=== PATIENT | female | born 1940 | race Caucasian/White ===

== ENCOUNTER 2020-02-24 09:36 | Outpatient (REF) | payer MEDICARE, BC, SELFPAY ==
[2020-02-24 10:21] LABS: Hematocrit 44.9 % (37-47); Hemoglobin 13.9 g/dl (12.0-16.0); Mean Corpuscular Hemoglobin 29.1 pg (27.0-33.0); Mean Corpuscular Volume 94.1 fL (80-98); Mean Platelet Volume 9.5 fL (9.4-12.3); Platelet Count 332 X10*3/uL (160-400); Red Blood Count 4.77 X10*6/uL (4.20-5.50); Red Cell Distribution Width 14.1 % (11.0-16.0); White Blood Count 8.5 X10*3/uL (4.8-10.8)
[2020-02-24 11:05] LABS: Ferritin 167 ng/mL (10-250)
[2020-02-24 18:52] LABS: Folate 8.6 ng/mL (> or = 4.0); Vitamin B12 248 pg/mL (200-900)
== END 2020-02-24 09:37 | disposition home or self-care (01) ==
LOC: HO.LAB 09:36
PROVIDERS: PCP Internal Medicine; Visit Provider Internal Medicine Gastroenterology
DX: Z86.2 Personal history of diseases of the blood and blood-forming organs and certain disorders involving the immune mechanism (principal)
CPT/HCPCS: 36415; 82607; 82728; 82746; 85027

== ENCOUNTER → 2020-05-21 13:08 | Outpatient (BNVA) | payer MEDICARE, BC, SELFPAY | PROVIDERS: PCP Internal Medicine; Visit Provider Internal Medicine Gastroenterology | DX: Z13.89 Encounter for screening for other disorder (principal) | CPT/HCPCS: Q3014 ==

== ENCOUNTER 2020-07-08 09:43 | Outpatient (REF) | payer MEDICARE, BC, SELFPAY ==
[2020-07-08 11:25] LABS: MANUAL DIFF FLAG NO
[2020-07-08 11:32] LABS: Basophils Absolute Auto 0.1 X10*3/uL (0.0-0.2); Basophils Percent Auto 0.8 % (0-2); Eosinophils Absolute Auto 0.2 X10*3/uL (0.0-0.4); Eosinophils Percent Auto 2.3 % (0-4); Hematocrit 45.6 % (37-47); Hemoglobin 14.7 g/dl (12.0-16.0); Imm Gran Abs Auto 0.02 X10*3/uL (0.00-0.03); Imm Gran Pct Auto 0.3 % (0.0-0.4); Lymphocytes Absolute Auto 2.1 X10*3/uL (1.2-4.9); Lymphocytes Percent Auto 27.2 % (20-40); Mean Corpuscular HGB Conc 32.2 g/dl (31.0-35.0); Mean Corpuscular Hemoglobin 29.5 pg (27.0-33.0); Mean Corpuscular Volume 91.6 fL (80-98); Mean Platelet Volume 9.6 fL (9.4-12.3); Monocytes Absolute Auto 0.5 X10*3/uL (0.1-1.2); Monocytes Percent Auto 6.2 % (2-11); Neutrophils Absolute Auto 4.9 X10*3/uL (2.0-8.3); Neutrophils Percent Auto 63.2 % (45-73); Platelet Count 318 X10*3/uL (160-400); Red Blood Count 4.98 X10*6/uL (4.20-5.50); Red Cell Distribution Width 14.2 % (11.0-16.0); White Blood Count 7.8 X10*3/uL (4.8-10.8)
[2020-07-08 11:48] LABS: Alanine Aminotransferase 14 U/L (0-31); Albumin Level 4.2 g/dL (3.5-5.0); Alkaline Phosphatase 86 U/L (39-117); Anion Gap 12 (12-20); Aspartate Amino Transferase 14 U/L (5-31); Bilirubin Total 0.5 mg/dL (0.0-1.0); Blood Urea Nitrogen 24 mg/dL (9-16); Calcium 9.5 mg/dL (8.4-10.2); Carbon Dioxide 27 mmol/L (22-29); Chloride 107 mmol/L (96-108); Cholesterol 194 mg/dL; Estimated Glomerular Filt Rate > 60; Glucose Fasting 102 mg/dL (60-99); HDL Cholesterol 60 mg/dL; Iron 103 mcg/dL (30-160); LDL Cholesterol Calculated 111 mg/dl; Percent Iron Saturation 40 % (15-50); Sodium 142 mmol/L (135-145); Total Iron Binding Capacity 257 mcg/dL (228-428); Triglycerides 119 mg/dL; Unsaturated Iron Binding 154 ug/dL
[2020-07-08 12:11] LABS: Thyroid Stimulating Hormone 3.29 uIU/mL (0.32-4.0)
[2020-07-08 12:22] LABS: Vitamin D 25-OH Total 13.8 ng/mL (>30)
[2020-07-08 13:09] LABS: Ferritin 125 ng/mL (10-250)
== END 2020-07-08 09:44 | disposition home or self-care (01) ==
LOC: HO.HMGCLDS 09:43
PROVIDERS: PCP Internal Medicine; Visit Provider Internal Medicine Gastroenterology
DX: D50.0 Iron deficiency anemia secondary to blood loss (chronic) (principal); I10 Essential (primary) hypertension; E78.00 Pure hypercholesterolemia, unspecified
CPT/HCPCS: 36415; 80053; 80061; 82306; 82728; 83540; 84443; 85025

== ENCOUNTER → 2021-01-11 13:17 | Outpatient (BNVA) | payer MEDICARE, BC, SELFPAY | PROVIDERS: PCP Internal Medicine; Referring Provider Internal Medicine; Visit Provider Internal Medicine Gastroenterology | DX: D50.9 Iron deficiency anemia, unspecified (principal); K44.9 Diaphragmatic hernia without obstruction or gangrene; K21.00 Gastro-esophageal reflux disease with esophagitis, without bleeding | CPT/HCPCS: 99212 ==

== ENCOUNTER 2022-02-14 09:01 | Outpatient (REF) | payer MEDICARE, BC, SELFPAY ==
[2022-02-14 11:16] LABS: MANUAL DIFF FLAG NO
[2022-02-14 11:32] LABS: Basophils Absolute Auto 0.1 X10*3/uL (0.0-0.2); Basophils Percent Auto 0.6 % (0-2); Eosinophils Absolute Auto 0.2 X10*3/uL (0.0-0.4); Hematocrit 44.8 % (37.0-47.0); Hemoglobin 14.4 g/dl (12.0-16.0); Imm Gran Abs Auto 0.02 X10*3/uL (0.00-0.03); Imm Gran Pct Auto 0.3 % (0.0-0.4); Lymphocytes Absolute Auto 2.8 X10*3/uL (1.2-4.9); Lymphocytes Percent Auto 34.5 % (20-40); Mean Corpuscular HGB Conc 32.1 g/dl (31.0-35.0); Mean Corpuscular Hemoglobin 29.6 pg (27.0-33.0); Mean Corpuscular Volume 92.2 fL (80.0-98.0); Mean Platelet Volume 9.9 fL (9.4-12.3); Monocytes Absolute Auto 0.5 X10*3/uL (0.1-1.2); Neutrophils Absolute Auto 4.4 x10*3/uL (2.0-8.3); Neutrophils Percent Auto 55.6 % (45-73); Platelet Count 284 X10*3/uL (160-400); Red Blood Count 4.86 X10*6/uL (4.20-5.50); Red Cell Distribution Width 13.3 % (11.0-16.0)
[2022-02-14 11:47] LABS: Alanine Aminotransferase 17 U/L (0-31); Albumin Level 4.1 g/dL (3.5-5.0); Alkaline Phosphatase 98 U/L (39-117); Anion Gap 15 (12-20); Aspartate Amino Transferase 16 U/L (5-31); Bilirubin Total 0.5 mg/dL (0.0-1.0); Blood Urea Nitrogen 18 mg/dL (9-16); Calcium 9.7 mg/dL (8.4-10.2); Carbon Dioxide 25 mmol/L (22-29); Chloride 106 mmol/L (96-108); Cholesterol 182 mg/dL; Estimated Glomerular Filt Rate > 60; Glucose Fasting 104 mg/dL (60-99); HDL Cholesterol 57 mg/dL; Iron 109 mcg/dL (30-160); LDL Cholesterol Calculated 106 mg/dl; Percent Iron Saturation 45 % (15-50); Potassium 4.4 mmol/L (3.3-5.1); Sodium 142 mmol/L (135-145); Total Iron Binding Capacity 244 mcg/dL (228-428); Total Protein 6.8 g/dL (6.5-8.0); Triglycerides 95 mg/dL; Unsaturated Iron Binding 135 ug/dL
[2022-02-14 12:12] LABS: Ferritin 241 ng/mL (10-250); Thyroid Stimulating Hormone 3.04 uIU/mL (0.32-4.0)
== END 2022-02-14 09:02 | disposition home or self-care (01) ==
LOC: HO.HMGCLDS 09:01
PROVIDERS: PCP Internal Medicine; Visit Provider Internal Medicine
DX: I10 Essential (primary) hypertension (principal); E78.00 Pure hypercholesterolemia, unspecified; D50.0 Iron deficiency anemia secondary to blood loss (chronic); M81.0 Age-related osteoporosis without current pathological fracture
CPT/HCPCS: 36415; 80053; 80061; 82306; 82728; 83540; 84443; 85025

== ENCOUNTER 2022-08-22 11:43 | Outpatient (REF) | payer MEDICARE, BC, SELFPAY ==
--- NOTE | ~2022-08-22 | XR_ITS ---
EXAMINATION: XR ANKLE, RIGHT CLINICAL INFORMATION: Sprain COMPARISON: None available. TECHNIQUE: AP, lateral, and mortise views of the right ankle. FINDINGS: There is an avulsion fracture of the inferior lateral malleolus. No other fracture is seen. The ankle mortise is normal. There is lateral soft tissue swelling and probable joint effusion. XR/XR ankle RT min 3V IMPRESSION: Avulsion fracture of the inferior lateral malleolus.
== END 2022-08-22 11:44 | disposition home or self-care (01) ==
LOC: HO.HMGCX 11:43
PROVIDERS: PCP Internal Medicine; Visit Provider Internal Medicine
DX: S93.401A Sprain of unspecified ligament of right ankle, initial encounter (principal)
CPT/HCPCS: 73610

== ENCOUNTER 2022-08-29 08:56 | Outpatient (REF) | payer MEDICARE, BC, SELFPAY ==
[2022-08-29 11:27] LABS: MANUAL DIFF FLAG NO
[2022-08-29 11:44] LABS: Basophils Percent Auto 0.4 % (0-2); Eosinophils Absolute Auto 0.2 X10*3/uL (0.0-0.4); Eosinophils Percent Auto 2.3 % (0-4); Hematocrit 42.5 % (37.0-47.0); Hemoglobin 13.7 g/dl (12.0-16.0); Imm Gran Abs Auto 0.03 X10*3/uL (0.00-0.03); Imm Gran Pct Auto 0.3 % (0.0-0.4); Lymphocytes Absolute Auto 2.4 X10*3/uL (1.2-4.9); Lymphocytes Percent Auto 26.9 % (20-40); Mean Corpuscular HGB Conc 32.2 g/dl (31.0-35.0); Mean Corpuscular Hemoglobin 30.4 pg (27.0-33.0); Mean Corpuscular Volume 94.4 fL (80.0-98.0); Mean Platelet Volume 10.1 fL (9.4-12.3); Monocytes Absolute Auto 0.5 X10*3/uL (0.1-1.2); Neutrophils Absolute Auto 5.8 x10*3/uL (2.0-8.3); Neutrophils Percent Auto 64.1 % (45-73); Platelet Count 291 X10*3/uL (160-400); Red Cell Distribution Width 13.8 % (11.0-16.0); White Blood Count 9.1 X10*3/uL (4.8-10.8)
[2022-08-29 12:03] LABS: Alanine Aminotransferase 14 U/L (0-31); Albumin Level 3.8 g/dL (3.5-5.0); Alkaline Phosphatase 93 U/L (39-117); Anion Gap 12 (12-20); Aspartate Amino Transferase 14 U/L (5-31); Bilirubin Total 0.6 mg/dL (0.0-1.0); Blood Urea Nitrogen 21 mg/dL (9-16); Calcium 9.1 mg/dL (8.4-10.2); Carbon Dioxide 24 mmol/L (22-29); Chloride 112 mmol/L (96-108); Estimated Glomerular Filt Rate > 60; Glucose Fasting 96 mg/dL (60-99); Iron 79 mcg/dL (30-160); Percent Iron Saturation 39 % (15-50); Potassium 4.2 mmol/L (3.3-5.1); Sodium 144 mmol/L (135-145); Total Iron Binding Capacity 205 mcg/dL (228-428); Total Protein 6.2 g/dL (6.5-8.0); Unsaturated Iron Binding 126 ug/dL
[2022-08-29 12:22] LABS: Ferritin 294 ng/mL (10-250)
== END 2022-08-29 08:57 | disposition home or self-care (01) ==
LOC: HO.HMGCLDS 08:56
PROVIDERS: PCP Internal Medicine; Visit Provider Internal Medicine
DX: I10 Essential (primary) hypertension (principal); E78.00 Pure hypercholesterolemia, unspecified; M81.0 Age-related osteoporosis without current pathological fracture; D50.0 Iron deficiency anemia secondary to blood loss (chronic)
CPT/HCPCS: 36415; 80053; 82728; 83540; 85025

== ENCOUNTER 2023-03-01 08:18 | Outpatient (REF) | payer MEDICARE, BC, SELFPAY ==
[2023-03-01 11:15] LABS: MANUAL DIFF FLAG NO
[2023-03-01 11:25] LABS: Basophils Absolute Auto 0.1 X10*3/uL (0.0-0.2); Eosinophils Absolute Auto 0.2 X10*3/uL (0.0-0.4); Hemoglobin 14.4 g/dl (12.0-16.0); Imm Gran Abs Auto 0.02 X10*3/uL (0.00-0.03); Imm Gran Pct Auto 0.3 % (0.0-0.4); Lymphocytes Absolute Auto 1.9 X10*3/uL (1.2-4.9); Lymphocytes Percent Auto 29.5 % (20-40); Mean Corpuscular HGB Conc 32.7 g/dl (31.0-35.0); Mean Corpuscular Hemoglobin 30.3 pg (27.0-33.0); Mean Corpuscular Volume 92.4 fL (80.0-98.0); Mean Platelet Volume 10.1 fL (9.4-12.3); Monocytes Absolute Auto 0.6 X10*3/uL (0.1-1.2); Monocytes Percent Auto 9.7 % (2-11); Neutrophils Absolute Auto 3.6 x10*3/uL (2.0-8.3); Neutrophils Percent Auto 56.5 % (45-73); Platelet Count 287 X10*3/uL (160-400); Red Blood Count 4.76 X10*6/uL (4.20-5.50); Red Cell Distribution Width 13.1 % (11.0-16.0); White Blood Count 6.3 X10*3/uL (4.8-10.8)
[2023-03-01 11:40] LABS: Alanine Aminotransferase 16 U/L (0-31); Albumin Level 3.9 g/dL (3.5-5.0); Alkaline Phosphatase 84 U/L (39-117); Anion Gap 13 (12-20); Aspartate Amino Transferase 18 U/L (5-31); Bilirubin Total 0.4 mg/dL (0.0-1.0); Blood Urea Nitrogen 15 mg/dL (9-16); Calcium 9.8 mg/dL (8.4-10.2); Carbon Dioxide 25 mmol/L (22-29); Chloride 108 mmol/L (96-108); Cholesterol 167 mg/dL (<200); Estimated Glomerular Filt Rate > 60; Glucose Fasting 98 mg/dL (60-99); HDL Cholesterol 58 mg/dL (>40); Iron 41 mcg/dL (30-160); LDL Cholesterol Calculated 88 mg/dL (<100); Percent Iron Saturation 20 % (15-50); Sodium 142 mmol/L (135-145); Total Iron Binding Capacity 206 mcg/dL (228-428); Total Protein 6.8 g/dL (6.5-8.0); Triglycerides 107 mg/dL (<150); Unsaturated Iron Binding 165 ug/dL
[2023-03-01 11:59] LABS: Ferritin 397 ng/mL (10-250); Thyroid Stimulating Hormone 3.42 uIU/mL (0.32-4.0); Vitamin D 25-OH Total 43.7 ng/mL (>30)
== END 2023-03-01 08:19 | disposition home or self-care (01) ==
LOC: HO.HMGCLDS 08:18
PROVIDERS: PCP Internal Medicine; Visit Provider Internal Medicine
DX: I10 Essential (primary) hypertension (principal); E78.00 Pure hypercholesterolemia, unspecified; M81.0 Age-related osteoporosis without current pathological fracture; D50.0 Iron deficiency anemia secondary to blood loss (chronic)
CPT/HCPCS: 36415; 80053; 80061; 82306; 82728; 83540; 84443; 85025

== ENCOUNTER 2024-07-13 13:40 | Emergency (ER) | payer MEDICARE, BC, SELFPAY ==
--- NOTE | ~2024-07-13 | CT_ITS ---
CLINICAL HISTORY: LLQ palpable lump. Nontender. CT abdomen and pelvis with contrast Comparison: CT/REG/SR - ABD PELVIS WO CONT [id number] - 12/29/19 11:16 EDT Findings: The lung bases are clear. The gallbladder is somewhat distended with a stone in the gallbladder. No intrahepatic or extrahepatic biliary ductal dilatation. The liver, spleen and pancreas are unremarkable. Stable thickening of the adrenal glands [id number]-right. Enhancement of bilateral kidneys with no ureteral stones and no hydronephrosis or hydroureter. Moderate hiatal hernia. No bowel obstruction, pneumoperitoneum, or pneumatosis. Duodenal diverticulum. Diverticulosis especially of the sigmoid colon. Interval appendectomy. Moderate left lower quadrant fat containing ventral hernia with hernia neck measures 1.9 cm. No bowel involvement and no stranding in the hernia fat. 1.8 cm x 1.5 cm hypodensity in uterine fundus which is nonspecific. Urinary bladder is unremarkable. Abdominal aorta is normal in size. No acute osseous process. Multilevel degenerative changes in the lumbar spine and mild levocurvature. IMPRESSION: 1. Moderate size fat containing left lower quadrant ventral hernia with no bowel involvement and no stranding in the hernia fat. 2. Moderate hiatal hernia, cholelithiasis, diverticulosis and additional nonacute findings as described. This document has been electronically signed by: Catie Valdez MD on 07/13/2024 16:38:04
--- NOTE | 2024-07-13 13:49 | ED.ABDPAIN ---
HPI - Abdominal Pain General Chief Complaint: Abdominal Pain Stated Complaint: ? Hernia lower abdomen Time Seen by Provider: 07/13/24 15:31 Source: patient Mode of arrival: ambulatory Limitations: no limitations History of Present Illness ED Provider: Bob Tim DO HPI narrative: 84-year-old female with past medical history of degenerative disc disease, iron deficiency anemia, hypertension, hiatal hernia, GERD with esophagitis, GI bleed who presents to the emergency department due to 2 weeks of concern for a lump in the left lower quadrant with associated constipation and difficulty passing stool. Patient denies decreased flatus, fevers, chills, nausea, vomiting difficulty breathing, chest pain or abdominal pain. She states the lump noticeably worsened today. She states she has been helping to physically lift her sister which takes significant straightening. She states her stool is passing in small amounts but she has been moving her bowels and been taking docusate. She has taken milk of magnesia in the past but no recent laxatives. Patient and family were concerned about a hernia. Last colonoscopy was unremarkable several years ago, approximately 2020. Related Data Home Medications ?Medication ?Instructions ?Recorded ?Confirmed ferrous sulfate 142 mg (45 mg 142 mg PO DAILY 05/21/20 08/29/22 iron) tablet,extended release (Slow Fe) gabapentin 300 mg capsule 300 mg PO BID 05/21/20 08/29/22 cholecalciferol (vitamin D3) 50 50 mcg PO DAILY 01/11/21 08/29/22 mcg (2,000 unit) capsule psyllium husk 0.4 gram capsule 0.4 g PO DAILY 01/11/21 08/29/22 (Metamucil) Previous Rx's ?Medication ?Instructions ?Recorded bisacodyl 5 mg tablet,delayed 10 mg (2 x 5 mg) PO .2:00pm Colon 01/15/21 release (Dulcolax (bisacodyl)) prep 2 days #4 tabs polyethylene glycol 3350 17 238 g PO DAILY 1 day #238 grams 01/15/21 gram/dose oral powder (Miralax) omeprazole 20 mg capsule,delayed 20 mg PO BID #180 caps 12/27/21 release meloxicam 15 mg tablet 15 mg PO DAILY #14 tabs 08/22/22 docusate sodium 100 mg capsule 100 mg PO DAILY #90 caps 01/07/25 (Stool Softener) atorvastatin 10 mg tablet 10 mg PO DAILY #90 tabs 06/21/24 lisinopril 20 mg tablet 20 mg PO DAILY #90 tabs 06/21/24 Allergies Allergy/AdvReac Type Severity Reaction Status Date / Time NSAIDS (Non-Steroidal Allergy Severe GI BLEED Verified 07/13/24 13:53 Anti-Inflamma [NSAIDS (NON-STEROIDAL ANTI-INFLAMMA] naproxen Allergy unknown Verified 07/13/24 13:53 Review of Systems Review of Systems Yes all other systems are reviewed and are negative [facility] Past Medical History Surgical History History of esophagogastroduodenoscopy (EGD) Hx of appendectomy Hx of colonoscopy Family History Family History Sister Stroke Sister Alzheimer disease Social History Social History Alcohol intake: never Patient Tobacco Use Status: Former Tobacco user Advance Directives: Yes Advance Directives Information Provided: Yes Advance Directives on File: No Physical Exam ED Vital Signs: Vital Signs - 24 hr 07/13/24 13:51 07/13/24 15:21 Temperature 97.6 F 98.2 F Pulse Rate 81 80 Respiratory Rate 18 16 Blood Pressure 196/100 H 161/93 H Pulse Oximetry 98 98 Oxygen Delivery Method Room Air Room Air BMI result Body Mass Index 25.4 Constitutional: ?Alert, oriented, speaking in full sentences HEENT: ?Normocephalic, atraumatic. ?Moist mucous membranes Eyes: ?PERRL, EOMI Neck: ?Supple, nontender Respiratory: ?Lungs clear to auscultation, no increased work of breathing Cardio: ?Regular rate and rhythm, no murmur, 2+ radial and DP pulses symmetrically GI: ?Soft, nondistended, nontender, there is a palpable mass which reduces located over the left lower abdomen but not in the inguinal canal. No overlying skin changes. No tenderness. Normoactive bowel sounds noted. Back: ?Normal range of motion, nontender Skin: ?No rash, no lesions Neuro: ?Alert and oriented to person, place and time, moves all 4 extremities, no focal deficits Extremities: ?No swelling or tenderness, full range of motion Psych: ?Calm, alert and cooperative, appropriate behavior Course Course Course Narrative: This is a Rapid Medical Exam performed in triage by Nery Feldman PA-C. Full HPI, ROS and PE to be performed by primary ED provider. 84 yo F w/pmhx DDD, GERD, anemia, presenting to the ED c/o nonpainful lump in abdomen x2 weeks with constipation. Last BM small & hard last night. Is passing flatus. Denies N/V, fever, dysuria/hematuria. denies vaginal bleeding or d/c PE: +palpable hard mass to LLQ. No erythema, fluctuance or induration. Not reducible. nontender Plan: labs, UA, CTAP Medical Decision Making Medical Decision Making MDM Narrative: This is a well-appearing patient presenting with concerns for a left-sided hernia as well as changes in bowel habits. No GI bleeding and unremarkable labs today. No infectious symptoms. Differential includes intestinal versus fat containing hernia. Differential also includes constipation. There are no clinical signs or concerns for bowel obstruction. The patient has been on a stool softener but likely needs to escalate to a laxative and follow up with her primary care provider. She is pending CT imaging for further evaluation. I do not suspect diverticulitis. CT shows no acute findings. There are gallstones and diverticulosis as well as other incidental findings discussed with patient and family at bedside. Return precautions provided. Admission/Observation Consideration of admission/observation: Escalation of care including admission/observation considered Lab Data [facility] Lab Attestation statement: I reviewed the patient's lab results. Unremarkable CBC without anemia or thrombocytopenia or leukocytosis, unremarkable coags, unremarkable CMP, unremarkable urinalysis. 07/13/24 14:44 07/13/24 14:43 Labs: Lab Results 07/13/24 07/13/24 Range/Units 14:43 14:44 WBC 7.2 (4.8-10.8) X10*3/uL RBC 4.39 (4.20-5.50) X10*6/uL Hgb 13.6 (12.0-16.0) g/dl Hct 40.7 (37.0-47.0) % MCV 92.7 (80.0-98.0) fL MCH 31.0 (27.0-33.0) pg MCHC 33.4 (31.0-35.0) g/dl RDW 13.1 (11.0-16.0) % Plt Count 242 (160-400) X10*3/uL MPV 9.3 L (9.4-12.3) fL Immature Gran % (Auto) 0.3 (0.0-0.4) % Neut % (Auto) 59.5 (45-73) % Lymph % (Auto) 30.7 (20-40) % [place] % (Auto) 6.5 (2-11) % Eos % (Auto) 2.4 (0-4) % Baso % (Auto) 0.6 (0-2) % Lymph # (Auto) 2.2 (1.2-4.9) X10*3/uL [place] # (Auto) 0.5 (0.1-1.2) X10*3/uL Eos # (Auto) 0.2 (0.0-0.4) X10*3/uL Baso # (Auto) 0.0 (0.0-0.2) X10*3/uL Abs Immat Gran (auto) 0.02 (0.00-0.03) X10*3/uL Absolute Neuts (auto) 4.3 (2.0-8.3) x10*3/uL Absolute Nucleated RBC 0.000 (0.0-0.012) X10*3/uL Nucleated RBC % (auto) 0.0 (0.0-0.2) /100WBC PT 11.0 (10.9-12.4) SEC INR 0.9 (0.9-1.1) Sodium 144 (135-145) mmol/L Potassium 3.9 (3.3-5.1) mmol/L Chloride 112 H (96-108) mmol/L Carbon Dioxide 24 (22-29) mmol/L Anion Gap 12 (12-20) BUN 18 H (9-16) mg/dL Creatinine 0.75 (0.5-1.4) mg/dL Estim Creat Clear Calc 52.5 Estimated GFR > 60 Random Glucose 97 (60-115) mg/dL Calcium 9.3 (8.4-10.2) mg/dL Magnesium 2.2 (1.6-2.6) mg/dL Total Bilirubin 0.4 (0.0-1.0) mg/dL Direct Bilirubin 0.2 (0.0-0.5) mg/dL AST 22 (5-31) U/L ALT 14 (0-31) U/L Alkaline Phosphatase 82 (39-117) U/L Total Protein 6.9 (6.5-8.0) g/dL Albumin 3.9 (3.5-5.0) g/dL Lipase 25 (8-78) U/L Urine Color Yellow Urine Appearance Clear Urine pH 6.0 (5.0-9.0) Ur Specific [place] 1.010 (1.005-1.025) Urine Protein Negative (Neg-Trace) mg/dL Urine Glucose (UA) Negative (Negative) mg/dL Urine Ketones Negative (Negative) mg/dL Urine Blood Trace H (Negative) Urine Nitrite Negative (Negative) Ur Leukocyte Esterase Small (1+) H (Negative) Urine RBC 0-2 (0-2) /HPF Urine WBC 0-5 (0-5) /HPF Ur Squamous Epith Cells 0-2 (0-2) /HPF Urine Bacteria None Seen (None Seen) Hyaline Casts 0-2 (0-2) /LPF Medications Administered Discontinued Medications Generic Name Dose Route Start Last Admin Trade Name Freq PRN Reason Stop Dose Admin Iohexol 100 ml 07/13/24 16:02 07/13/24 16:02 Iohexol 350 Mg/Ml 100 Ml Infus..Btl IV 07/13/24 16:03 85 ml ONCE ONE Administration Discharge Plan Discharge Clinical Impression: Hiatal hernia, Diverticulosis Ventral hernia Qualifiers: Obstruction and gangrene presence: without obstruction or gangrene Qualified Code(s): K43.9 - Ventral hernia without obstruction or gangrene Gallstone Qualifiers: Cholecystitis presence: without cholecystitis Biliary obstruction: without biliary obstruction Qualified Code(s): K80.20 - Calculus of gallbladder without cholecystitis without obstruction Patient Disposition: Home, Self-Care Instructions: Ventral Hernia (ED), Diverticulosis (ED), Gallstones (ED) Additional Instructions: You have been evaluated by vital signs, physical exam, lab work and CT imaging. Your parents, exam and lab work were unremarkable. CT imaging showed a fat containing hernia which does not require any specific follow up. Your presentation is also consistent with constipation which you can take 1 cap full of MiraLax once a day for the next few days and if no significant relief in passing bowels you can increase to twice a day. Please follow up with your primary care provider or painter rough for re-evaluation. Return to the emergency department if you have any pain of your abdomen, fevers, inability to tolerate eating or drinking, nausea and vomiting, black or bloody stool or any acute changes. As discussed, please avoid lifting heavy objects and helping to lift your sister as this can cause worsening of your hernia. CT findings below do not require any specific follow-up but please discuss with your primary care provider as you do have diverticulosis and gallstones. The diverticulosis should be managed with lots of fluids and high-fiber diet at home to help avoid a diverticulitis flare which is an infection of the outpouchings of your intestines. Findings: The lung bases are clear. The gallbladder is somewhat distended with a stone in the gallbladder. No intrahepatic or extrahepatic biliary ductal dilatation. The liver, spleen and pancreas are unremarkable. Stable thickening of the adrenal glands [id number]. Enhancement of bilateral kidneys with no ureteral stones and no hydronephrosis or hydroureter. Moderate hiatal hernia. No bowel obstruction, pneumoperitoneum, or pneumatosis. Duodenal diverticulum. Diverticulosis especially of the sigmoid colon. Interval appendectomy. Moderate left lower quadrant fat containing ventral hernia with hernia neck measures 1.9 cm. No bowel involvement and no stranding in the hernia fat. 1.8 cm x 1.5 cm hypodensity in uterine fundus which is nonspecific. Urinary bladder is unremarkable. Abdominal aorta is normal in size. No acute osseous process. Multilevel degenerative changes in the lumbar spine and mild levocurvature. IMPRESSION: 1. Moderate size fat containing left lower quadrant ventral hernia with no bowel involvement and no stranding in the hernia fat. 2. Moderate hiatal hernia, cholelithiasis, diverticulosis and additional nonacute findings as described. Prescriptions: No Action polyethylene glycol 3350 [Miralax] 17 gram/dose powder 238 g PO DAILY 1 Days Qty: 238 0RF Rx Instructions: Mix Miralax with 64 oz(8 cups) of Crystal light. Take 2 tablets of Dulcolax qt 12 pm. Wait to have your 1st bowel movement, then begin drinking Miralax. Drink a glass of Miralax every 10-15 minutes until you are finished. You will drink at least another 4 cups of clear liquid of your choice over the next 2 hours. Please drink as many clear liquids as possible You may have clear liquids up to four hours before your procedure bisacodyl [Dulcolax (bisacodyl)] 5 mg tablet,delayed release (DR/EC) 10 mg PO .2:00pm 2 Days Qty: 4 0RF Rx Instructions: Take 2 tablets at 2 pm 2 days and 1 day before colonoscopy omeprazole 20 mg capsule,delayed release(DR/EC) 20 mg PO BID Qty: 180 1RF docusate sodium [Stool Softener] 100 mg capsule 100 mg PO DAILY Qty: 90 1RF atorvastatin 10 mg tablet 10 mg PO DAILY Qty: 90 1RF lisinopril 20 mg tablet 20 mg PO DAILY Qty: 90 1RF meloxicam 15 mg tablet 15 mg PO DAILY Qty: 14 0RF gabapentin 300 mg capsule 300 mg PO BID Slow Fe 142 mg (45 mg iron) tablet extended release 142 mg PO DAILY cholecalciferol (vitamin D3) 50 mcg (2,000 unit) capsule 50 mcg PO DAILY psyllium husk [Metamucil] 0.4 gram capsule 0.4 g PO DAILY Print Language: Thai
[2024-07-13 13:51] VITALS: BP 196/100; PULSE 81; RESP 18; TEMP 36.4; O2SAT 98; BMI 25.4
[2024-07-13 14:52] LABS: MANUAL DIFF FLAG NO
[2024-07-13 14:53] LABS: Basophils Percent Auto 0.6 % (0-2); Eosinophils Absolute Auto 0.2 X10*3/uL (0.0-0.4); Eosinophils Percent Auto 2.4 % (0-4); Hematocrit 40.7 % (37.0-47.0); Hemoglobin 13.6 g/dl (12.0-16.0); Imm Gran Abs Auto 0.02 X10*3/uL (0.00-0.03); Imm Gran Pct Auto 0.3 % (0.0-0.4); Lymphocytes Absolute Auto 2.2 X10*3/uL (1.2-4.9); Lymphocytes Percent Auto 30.7 % (20-40); Mean Corpuscular HGB Conc 33.4 g/dl (31.0-35.0); Mean Corpuscular Volume 92.7 fL (80.0-98.0); Mean Platelet Volume 9.3 fL (9.4-12.3); Monocytes Absolute Auto 0.5 X10*3/uL (0.1-1.2); Monocytes Percent Auto 6.5 % (2-11); Neutrophils Absolute Auto 4.3 x10*3/uL (2.0-8.3); Neutrophils Percent Auto 59.5 % (45-73); Platelet Count 242 X10*3/uL (160-400); Red Blood Count 4.39 X10*6/uL (4.20-5.50); Red Cell Distribution Width 13.1 % (11.0-16.0); White Blood Count 7.2 X10*3/uL (4.8-10.8)
[2024-07-13 14:59] LABS: Appearance Urine Clear; Color Urine Yellow; Glucose Urine UA Negative (Negative); Leukocyte Esterase Urine Small (1+) (Negative); Nitrite Urine Negative (Negative); UMIC TRIGGER UACC YES; Urine Blood Trace (Negative); Urine Ketones Negative (Negative); Urine Protein Negative (Neg-Trace)
[2024-07-13 15:03] LABS: INTERNATIONAL NORM RATIO 0.9 (0.9-1.1)
[2024-07-13 15:13] LABS: Bacteria Urine None Seen (None Seen); Hyaline Casts Urine 0-2 /LPF (0-2); RBC Urine 0-2 /HPF (0-2); Squamous Epithelial Cell Urine 0-2 /HPF (0-2); UACC Culture Trigger YES; WBC Urine 0-5 /HPF (0-5)
[2024-07-13 15:21] VITALS: BP 161/93; PULSE 80; RESP 16; TEMP 36.8; O2SAT 98
[2024-07-13 15:21] LABS: Alanine Aminotransferase 14 U/L (0-31); Albumin Level 3.9 g/dL (3.5-5.0); Alkaline Phosphatase 82 U/L (39-117); Anion Gap 12 (12-20); Aspartate Amino Transferase 22 U/L (5-31); Bilirubin Direct 0.2 mg/dL (0.0-0.5); Bilirubin Total 0.4 mg/dL (0.0-1.0); Blood Urea Nitrogen 18 mg/dL (9-16); Calcium 9.3 mg/dL (8.4-10.2); Carbon Dioxide 24 mmol/L (22-29); Chloride 112 mmol/L (96-108); Creatinine Clr Calc Pharmacy 52.5; Estimated Glomerular Filt Rate > 60; Glucose Random 97 mg/dL (60-115); Lipase 25 U/L (8-78); Magnesium 2.2 mg/dL (1.6-2.6); Potassium 3.9 mmol/L (3.3-5.1); Sodium 144 mmol/L (135-145); Total Protein 6.9 g/dL (6.5-8.0)
[2024-07-13] MEDS: iohexoL 350 MG/ML 100 ML INFUS..BTL IV (16:02)
[2024-07-13 16:55] VITALS: BP 161/93; PULSE 80; RESP 16; TEMP 36.8; O2SAT 98
== END 2024-07-13 16:55 | disposition home or self-care (01) ==
PROVIDERS: Physician Assistant; Emergency Provider Emergency Medicine; PCP Internal Medicine
DX: K57.30 Diverticulosis of large intestine without perforation or abscess without bleeding (principal); K44.9 Diaphragmatic hernia without obstruction or gangrene; K43.9 Ventral hernia without obstruction or gangrene; K80.20 Calculus of gallbladder without cholecystitis without obstruction; Z79.02 Long term (current) use of antithrombotics/antiplatelets; Z79.899 Other long term (current) drug therapy
CPT/HCPCS: 36415; 74177; 80048; 80076; 81001; 81003; 83690; 83735; 85025; 85610; 87086; 99283; 99284; Q9967

== ENCOUNTER → 2024-07-13 13:50 | Outpatient (BNV) | payer MEDICARE, BC, SELFPAY | PROVIDERS: Emergency Provider Emergency Medicine; PCP Internal Medicine; Visit Provider Specialist | DX: K43.9 Ventral hernia without obstruction or gangrene (principal); K44.9 Diaphragmatic hernia without obstruction or gangrene; K57.90 Diverticulosis of intestine, part unspecified, without perforation or abscess without bleeding | CPT/HCPCS: 74177 ==

== ENCOUNTER 2024-07-30 08:35 | Outpatient (REF) | payer MEDICARE, BC, SELFPAY ==
[2024-07-30 10:02] LABS: MANUAL DIFF FLAG NO
[2024-07-30 10:30] LABS: Basophils Absolute Auto 0.1 X10*3/uL (0.0-0.2); Basophils Percent Auto 0.7 % (0-2); Eosinophils Absolute Auto 0.2 X10*3/uL (0.0-0.4); Eosinophils Percent Auto 2.6 % (0-4); Hematocrit 42.8 % (37.0-47.0); Hemoglobin 14.3 g/dl (12.0-16.0); Imm Gran Abs Auto 0.02 X10*3/uL (0.00-0.03); Imm Gran Pct Auto 0.3 % (0.0-0.4); Lymphocytes Absolute Auto 2.5 X10*3/uL (1.2-4.9); Lymphocytes Percent Auto 35.7 % (20-40); Mean Corpuscular HGB Conc 33.4 g/dl (31.0-35.0); Mean Corpuscular Hemoglobin 31.3 pg (27.0-33.0); Mean Corpuscular Volume 93.7 fL (80.0-98.0); Mean Platelet Volume 9.7 fL (9.4-12.3); Monocytes Absolute Auto 0.5 X10*3/uL (0.1-1.2); Monocytes Percent Auto 7.1 % (2-11); Neutrophils Absolute Auto 3.8 x10*3/uL (2.0-8.3); Neutrophils Percent Auto 53.6 % (45-73); Platelet Count 284 X10*3/uL (160-400); Red Blood Count 4.57 X10*6/uL (4.20-5.50); Red Cell Distribution Width 13.1 % (11.0-16.0)
[2024-07-30 10:43] LABS: Alanine Aminotransferase 15 U/L (0-31); Albumin Level 4.1 g/dL (3.5-5.0); Alkaline Phosphatase 84 U/L (39-117); Anion Gap 10 (12-20); Aspartate Amino Transferase 20 U/L (5-31); Bilirubin Total 0.5 mg/dL (0.0-1.0); Blood Urea Nitrogen 22 mg/dL (9-16); Calcium 9.4 mg/dL (8.4-10.2); Carbon Dioxide 27 mmol/L (22-29); Chloride 110 mmol/L (96-108); Cholesterol 176 mg/dL (<200); Estimated Glomerular Filt Rate > 60; Glucose Fasting 98 mg/dL (60-99); HDL Cholesterol 66 mg/dL (>40); LDL Cholesterol Calculated 94 mg/dL (<100); Sodium 143 mmol/L (135-145); Total Protein 7.1 g/dL (6.5-8.0); Triglycerides 84 mg/dL (<150)
== END 2024-07-30 08:36 | disposition home or self-care (01) ==
LOC: HO.HMGCLDS 08:35
PROVIDERS: PCP Internal Medicine; Visit Provider Internal Medicine
DX: I10 Essential (primary) hypertension (principal); E78.00 Pure hypercholesterolemia, unspecified; M81.0 Age-related osteoporosis without current pathological fracture; D50.0 Iron deficiency anemia secondary to blood loss (chronic)
CPT/HCPCS: 36415; 80053; 80061; 82306; 84443; 85025

== ENCOUNTER 2024-08-06 09:59 | Outpatient (AMB) | payer MEDICARE, BC, SELFPAY ==
[2024-08-06 10:16] VITALS: BP 144/80; PULSE 84; RESP 16; TEMP 36.6; O2SAT 99; BMI 25.2
--- NOTE | 2024-08-06 10:16 | A.OFFPC_ITS ---
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 Required: No Accompanied by: Self / Same As Patient Allergies NSAIDS (Non-Steroidal Anti-Inflamma [NSAIDS (NON-STEROIDAL ANTI-INFLAMMA] Allergy (Severe, Verified 08/06/24 10:17) GI BLEED naproxen Allergy (Verified 08/06/24 10:17) unknown Tobacco use date assessed: 08/06/24 Fall risk assessment: No Falls in past year Last assessed Fall Risk: 08/06/24 Dental Screening Dental Screen Date: 08/06/24 Did you have a dental visit in the last 12 months?: No Did you have a dental problem in the last 6 months where you did not have access to dental care?: No Was dental information given to patient?: No (pt has dentures) PFSH Surgical History History of esophagogastroduodenoscopy (EGD) Hx of colonoscopy Hx of appendectomy Family History Sister Stroke Sister Alzheimer disease Social History Housing: Condominium Alcohol intake: never Patient Tobacco Use Status: Never used Tobacco service: No Current occupational status: retired Cognitive needs: Yes (cane) Hearing needs: No Vision needs: Yes (rx glasses) Questionnaire PHQ-9 Over the last 2 weeks, how often have you been bothered by any of the following problems? 1. Little interest or pleasure in doing things: not at all 2. Feeling down, depressed, or hopeless: not at all 3. Trouble falling or staying asleep, or sleeping too much: not at all 4. Feeling tired or having little energy: not at all 5. Poor appetite or overeating: not at all 6. Feeling bad about yourself - or that you are a failure or have let yourself or your family down: not at all 7. Trouble concentrating on things, such as reading the newspaper or watching television: not at all 8. Moving or speaking so slowly that other people could have noticed. Or the opposite - being so fidgety or restless that you have been moving around a lot more than usual: not at all 9. Thoughts that you would be better off or of hurting yourself in some way: not at all Total score: 0 Source: Developed by Drs. Doc Zafar, Aleena Burdick, Yanick Yoo and colleagues, with an educational ritchie from [employer]. Thrive Questionnaire Date Thrive assessed: 08/06/24 I am a: Patient What is your living situation today?: I have a steady place to live Within the past 12 months, did the food you bought not last and you didn't have the money to get more?: Never true Within the past 12 months, did you worry whether your food would run out before you got money to buy more?: Never true Do you have trouble paying for medicines?: No Do you have trouble getting transportation to medical appointments?: No Do you have trouble paying your heating and electricity bill?: No Do you have trouble taking care of your child, family member or friend?: No Do you have trouble with day-to-day activities such as bathing, preparing meals, shopping, managing finances, etc.?: No Are you currently unemployed and looking for a job?: No Are you interested in more education?: No Please select the resources that you would like help with: None THRIVE Score: 0 AUDIT C Alcohol Use Questionnaire (AUDIT-C) 1. How often do you have a drink containing alcohol?: Never 3. How often do you have six or more drinks on one occasion?: Never Total Score: 0 NAPOLEON-7 AMB Questionnaire NAPOLEON-7 Date NAPOLEON - 7 assessed: 08/06/24 Feeling nervous, anxious, or on edge: 0 = Not at all Not being able to stop or control worryin = Not at all Worrying too much about different things: 0 = Not at all Trouble relaxin = Not at all Being so restless that it is hard to sit still: 0 = Not at all Becoming easily annoyed or irritable: 0 = Not at all Feeling afraid as if something awful might happen: 0 = Not at all Total NAPOLEON-7 score (0-4 normal; 5-9 mild; 10-14 moderate; 15-21 severe): 0 Source: Developed by Drs. Doc Zafar, Aleena Burdick, Yanick Yoo and colleagues, with an educational ritchie from [employer]. Physical exam (Primary Care) Vital Signs: Last Vital Signs Temp 97.8 F 08/06/24 10:16 Pulse 84 08/06/24 10:16 Resp 16 08/06/24 10:16 BP 144/80 H 08/06/24 10:16 Pulse Ox 99 08/06/24 10:16 Oxygen Delivery Method Room Air 08/06/24 10:16 BMI result Body Mass Index 25.2 Tobacco/Smoking Status: Tobacco use Status Tobacco use date assessed 08/06/24 08/06/24 10:26 Patient Tobacco Use Status Never used Tobacco 08/06/24 10:26 PHQ-9: PHQ-9 Score PHQ-9: Total score 0 08/06/24 10:26 Thrive Assessment: Date of Thrive Assessment Date Thrive assessed 08/06/24 08/06/24 10:26 Coding Level of Care Code New Pt Level 4 (40978) Complex EM visit Add On G2211 Diagnoses Diverticulosis K57.90 Assessment & Plan Assessment & Plan (1) Diverticulosis: Code(s): K57.90 - Diverticulosis of intestine, part unspecified, without perforation or abscess without bleeding Plan: Condition is stable. Continue current meds. Plan History of Present Illness The patient is an 84-year-old female presenting with known diverticulosis for evaluation and management. Previously, she sought medical advice for a hernia and shortly thereafter, diverticulosis was diagnosed. Though she recalls visits to a healthcare facility, she provides no additional details regarding symptoms or gastrointestinal issues that may have necessitated further evaluation. She did not report any acute incidents attributable to diverticulosis since her last known visit. Social History Review of Systems - Musculoskeletal: Denies fracture or recent injury. Physical Exam General: Cooperative and healthy appearing Nutritional Appearance: Well nourished Orientation/consciousness: Patient oriented x3 Limitations: No limitations Head: Normal to inspection General: Appearance normal, both eyes and all related structures Neck: Normal visual inspection Chest: Normal palpation of entire chest wall Respiratory: Normal respiratory effort Neurology: Patient oriented x3 Results Plan Management of the patient's known diverticulosis is emphasized, with recommendat ions likely to include dietary adjustments to increase fiber intake. It is essential to monitor gastrointestinal health through regular follow-ups, especially in light of her age to prevent potential complications. Educating the patient on recognizing and acting upon early signs of diverticulitis is pivotal. Patient was informed and verbally consented to the use of an ambient scribe for clinic note documentation during this visit. Discussion Notes During the visit, we addressed the patient's known condition of diverticulosis. I emphasized the importance of dietary modifications, particularly increasing fiber intake, to manage her condition and avoid complications such as diverticulitis. We discussed the necessity of regular follow-up visits to monitor her health given her age and ongoing risk factors. I ensured the patient understands the importance of recognizing symptoms that might indicate a complication and to seek medical attention if these occur. Patient Instructions - Follow a high-fiber diet to help manage diverticulosis. - Pay attention to symptoms that may indicate complications and seek medical help if these occur. - Return for regular follow-up visits for ongoing monitoring. - Monitor activity levels and avoid strain that might exacerbate your condition.
== END 2024-08-06 10:41 | disposition home or self-care (01) ==
LOC: HO.HMCSH 09:59
PROVIDERS: PCP Internal Medicine; Visit Provider Internal Medicine
DX: K57.90 Diverticulosis of intestine, part unspecified, without perforation or abscess without bleeding (principal)

== ENCOUNTER → 2024-08-06 09:59 | Outpatient (BNVA) | payer MEDICARE, BC, SELFPAY | PROVIDERS: PCP Internal Medicine; Visit Provider Internal Medicine | DX: K57.90 Diverticulosis of intestine, part unspecified, without perforation or abscess without bleeding (principal) | CPT/HCPCS: 99202 ==

== ENCOUNTER 2025-02-11 10:06 | Outpatient (AMB) | payer MEDICARE, BC, SELFPAY ==
[2025-02-11 10:20] VITALS: BP 146/82; PULSE 82; RESP 14; TEMP 36.8; O2SAT 98; BMI 25.1
--- NOTE | 2025-02-11 10:20 | A.OFFPC_ITS ---
Vital Signs 02/11/25 10:20 Height 5 ft 4 in Weight 146 lb BMI 25.1 BP 146/82 H Respiration 14 Pulse 82 Pulse Source Pulse Oximeter Temp 98.2 F Temp Source Temporal Artery Scan Pulse Oximetry (%) 98 Oxygen Delivery Method Room Air Intake Visit Reasons: 6 month f/u Stogy Maker Required: No Accompanied by: Self / Same As Patient Allergies NSAIDS (Non-Steroidal Anti-Inflamma (NSAIDS (NON-STEROIDAL ANTI-INFLAMMA) Allergy (Severe, Verified 02/11/25 10:20) GI BLEED naproxen Allergy (Verified 02/11/25 10:20) unknown Tobacco use date assessed: 02/11/25 Dental Screening Dental Screen Date: 08/06/24 [facility] Surgical History History of esophagogastroduodenoscopy (EGD) Hx of colonoscopy (~07/21/12) Hx of appendectomy Family History Sister Stroke Sister Alzheimer disease Social History Housing: Condominium Alcohol intake: never Patient Tobacco Use Status: Never used Tobacco service: No Current occupational status: retired Cognitive needs: Yes (cane) Hearing needs: No Vision needs: Yes (rx glasses) Questionnaire PHQ-9 Over the last 2 weeks, how often have you been bothered by any of the following problems? 1. Little interest or pleasure in doing things: not at all 2. Feeling down, depressed, or hopeless: not at all 3. Trouble falling or staying asleep, or sleeping too much: not at all 4. Feeling tired or having little energy: not at all 5. Poor appetite or overeating: not at all 6. Feeling bad about yourself - or that you are a failure or have let yourself or your family down: not at all 7. Trouble concentrating on things, such as reading the newspaper or watching television: not at all 8. Moving or speaking so slowly that other people could have noticed. Or the opposite - being so fidgety or restless that you have been moving around a lot more than usual: not at all 9. Thoughts that you would be better off or of hurting yourself in some way: not at all Total score: 0 Source: Developed by Drs. Doc Zafar, Aleena Burdick, Yanick Yoo and colleagues, with an educational ritchie from [employer]. Thrive Questionnaire Date Thrive assessed: 08/06/24 I am a: Patient What is your living situation today?: I have a steady place to live Within the past 12 months, did the food you bought not last and you didn't have the money to get more?: Never true Within the past 12 months, did you worry whether your food would run out before you got money to buy more?: Never true Do you have trouble paying for medicines?: No Do you have trouble getting transportation to medical appointments?: No Do you have trouble paying your heating and electricity bill?: No Do you have trouble taking care of your child, family member or friend?: No Do you have trouble with day-to-day activities such as bathing, preparing meals, shopping, managing finances, etc.?: No Are you currently unemployed and looking for a job?: No Are you interested in more education?: No Please select the resources that you would like help with: None THRIVE Score: 0 AUDIT C Alcohol Use Questionnaire (AUDIT-C) 1. How often do you have a drink containing alcohol?: Never 3. How often do you have six or more drinks on one occasion?: Never Total Score: 0 NAPOLEON-7 AMB Questionnaire NAPOLEON-7 Date NAPOLEON - 7 assessed: 08/06/24 Feeling nervous, anxious, or on edge: 0 = Not at all Not being able to stop or control worryin = Not at all Worrying too much about different things: 0 = Not at all Trouble relaxin = Not at all Being so restless that it is hard to sit still: 0 = Not at all Becoming easily annoyed or irritable: 0 = Not at all Feeling afraid as if something awful might happen: 0 = Not at all Total NAPOLEON-7 score (0-4 normal; 5-9 mild; 10-14 moderate; 15-21 severe): 0 Source: Developed by Aleena Nix Kurt Kroenke and colleagues, with an educational ritchie from [employer] Physical exam (Primary Care) Vital Signs: Last Vital Signs Temp 98.2 F 02/11/25 10:20 Pulse 82 02/11/25 10:20 Resp 14 02/11/25 10:20 BP 146/82 H 02/11/25 10:20 Pulse Ox 98 02/11/25 10:20 Oxygen Delivery Method Room Air 02/11/25 10:20 BMI result Body Mass Index 25.1 Tobacco/Smoking Status: Tobacco use Status Tobacco use date assessed 02/11/25 02/11/25 10:29 Patient Tobacco Use Status Never used Tobacco 02/11/25 10:29 PHQ-9: PHQ-9 Score PHQ-9: Total score 0 02/11/25 10:29 Thrive Assessment: Date of Thrive Assessment Date Thrive assessed 08/06/24 02/11/25 10:29 Office Procedures Flu Questionnaire Does the patient have a severe egg allergy?: No Does the patient have severe life threatening allergies?: No Does the patient have a fever or illness today?: No Has the patient ever had Guillain-Whittaker Syndrome?: No Has the patient ever had any past reaction to a flu shot?: No Immunizations Fluarix 2018-0315 (PF) 45 mcg (15 mcg x 3)/0.5 mL IM syringe Performing Provider: Arsenio Sr MD [place] [facility] [place] [facility] Documented (not given) by: MAICOL Cannon on 02/11/25 10:30 Reason Not Given: Patient Refused Coding Level of Care Code Est Pt Level 4 (05224) Complex EM visit Add On G2211 Diagnoses GERD with esophagitis K21.00 Assessment & Plan Assessment & Plan (1) GERD with esophagitis: Code(s): K21.00 - Gastro-esophageal reflux disease with esophagitis, without bleeding Category: Medical Plan: History of Present Illness - The patient is an 84-year-old female presenting for a routine wellness visit. - Diverticulosis is stable with no current complications reported. - The patient has a hernia but reports no pain or complications. - The patient is uncertain about the recent influenza vaccination and plans to confirm with a family member. Social History Review of Systems - Gastrointestinal: Denies abdominal pain or changes in bowel habits. - Respiratory: Denies dyspnea and reports breathing well. - General: Reports feeling healthy overall. Physical Exam General: Cooperative and healthy appearing Nutritional Appearance: Well nourished Orientation/consciousness: Patient oriented x3 Limitations: No limitations Head: Normal to inspection General: Appearance normal, both eyes and all related structures Neck: Normal visual inspection Chest: Normal palpation of entire chest wall Respiratory: Breathing well ormal respiratory effort Neurology: Patient oriented x3 Results Plan - Continue current management for diverticulosis as it remains stable. - Monitor hernia for any changes or complications. - Confirm influenza vaccination status with family and update as necessary. - Plan for routine blood work to be completed one week prior to the next visit. Discussion Notes Patient Instructions - Continue taking medications as prescribed, including omeprazole and statin. - Monitor hernia for any changes and report if any pain or complications arise. - Confirm with family about the flu shot and get vaccinated if not done recently. - Schedule and complete blood work one week before the next appointment. Orders: Orders Influenza [id number] Immunization Today Z23 - Encounter for immunization
== END 2025-02-11 10:58 | disposition home or self-care (01) ==
LOC: HO.HMCSH 10:06
PROVIDERS: PCP Internal Medicine; Visit Provider Internal Medicine
DX: K21.00 Gastro-esophageal reflux disease with esophagitis, without bleeding (principal); Z23 Encounter for immunization

== ENCOUNTER → 2025-02-11 10:06 | Outpatient (BNVA) | payer MEDICARE, BC, SELFPAY | PROVIDERS: PCP Internal Medicine; Visit Provider Internal Medicine | DX: K21.00 Gastro-esophageal reflux disease with esophagitis, without bleeding (principal); Z28.21 Immunization not carried out because of patient refusal | CPT/HCPCS: 90471; 96127; 99212 ==